=== PATIENT | female | born 1990 | race American Indian/Alaskan Native ===

== ENCOUNTER 2022-03-18 05:54 | Inpatient (IN) | payer OTHER, MEDICAID ==
[2022-03-15 12:36] LABS: Hematocrit 30.5 % (30.3-42.9); Hemoglobin 9.3 gm/dl (10.1-14.3); Mean Corpuscular HGB Conc 31 % (30-34); Mean Corpuscular Volume 74 fl (79-97); Platelet Count 327 K/mm3 (140-440); Red Cell Distribution Width 16.2 % (13.2-15.2)
[2022-03-15 13:51] LABS: Basophils % (Manual) 0 % (0.0-1.8); Eosinophils % (Manual) 0 % (0.0-4.3); Total Cells Counted 100
[2022-03-15 13:52] LABS: Anisocytosis 1+; Hypochromasia 2+; Large Platelets Few; Platelet Estimate Consistent w Auto
[2022-03-18] MEDS ORDERED: LACTATED RINGERS 1,000 ML ONE (09:29)
--- NOTE | 2022-03-18 09:38 | History and Physical Report ---
History of Present Illness Date of examination: 03/15/22 Date of admission: 03/18/22 08:58 Chief complaint: here for c/s History of present illness: All risk/benefits/alternatives were d/w pt and questions were addressed and answered. Cosnsents signed and placed on the chart. EDC Calculations LMP: 03/25/2022 Exam: 03/24/2022 EDC Confirmation: 03/24/2022 Gestational Age: 31 6/7 weeks Past History : 3 Living Children: 1 Elect. Ab: 1 # 1 Delivery date: 11/01/2010 Weeks Gestation: 37 labor: no Delivery type: Anesthesia type: epidural Sex: Male weight: 6-8 Past Medical History: Reviewed and updated today: Negative Past Surgical History: Reviewed and updated today: negative Risk Factors: Smoked Tobacco Use: Never smoker Smokeless Tobacco Use: Never Passive Smoke Exposure: no HIV High Risk Behavior: past IV drug use Exercise: no Seatbelt Use: 100 % PAP Smear History: Date of Last PAP Smear: 09/16/2021 Results: Normal Alcohol Use: no Drug Use: no Past Medical History Anesthesia Complications: negative Anemia: negative Autoimmune Disorder: negative Bleeding Disorder: negative Blood Transfusions: negative Breast Disease: negative Diabetes: negative Heart Disease: negative Hypertension: negative Hepatitis/Liver Disease: negative Kidney Disease/UTI: negative Neurologic/Epilepsy/Migraines: negative Phlebitis/Varicosities: negative Psychiatric: negative Pulmonary Disease/Asthma: negative Thyroid Disease: negative Hospitalizations: negative Surgery (Non-heater helper forge): negative Abnormal PAP: negative Infertility: negative Uterine Anomaly: negative Uterine Surgery (not C/S): negative Infection History Hx of STD: none HIV Risk Eval: past IV drug use Personal hx. of genital herpes: no Partner hx. of genital herpes: no Rash, Viral, or Febrile illness since last LMP? no Genetic History Congenital Heart Defect: Mom: no Will Disease: Mom: no Thalassemia Mom: no Neural Tube Defect Mom: no Down's Syndrome Mom: no Arik-Sachs Mom: no Sickle Cell Disease/Trait Mom: no Hemophilia Mom: no Muscular Dystrophy Mom: no Cystic Fibrosis Mom: no [place] Chorea Mom: no Mental Retardation Mom: no Fragile X Mom: no Other Genetic/Chromosomal Disorder Mom: no Child w/other defect Mom: no Enviromental Exposures Xray Exposure: no Medication, drug, or alcohol use since LMP: no Chemical/Other Exposure: no Exposure to Cat Liter: no Hx of Parvovirus (Fifth Disease): no Active Medications (reviewed today): unspecified unspecified ([id number]) iron unspecified unspecified (ferrous sulfate) Current Allergies: No known allergies Past History Past Medical History: no pertinent history Past Surgical History: section Family/Genetic History: other (see hpi) Social history: other (see hpi) - Obstetrical History Expected Date of Delivery: 03/25/22 Actual Gestation: 39 Week(s) 0 Day(s) : 2 Para: 1 Number of Living Children: 1 Medications and Allergies Allergies Allergy/AdvReac Type Severity Reaction Status Date / Time No Known Allergies Allergy Unverified 03/09/22 21:13 Home Medications Medication Instructions Recorded Confirmed Last Taken Type No Known Home Medications [No 03/09/22 03/09/22 Unknown History Reported Home Medications] Review of Systems All systems: negative - Vital Signs Vital signs: Vital Signs Temp Pulse Resp BP Pulse Ox 98.5 F 75 16 126/74 100 03/15/22 11:55 03/15/22 11:55 03/15/22 11:55 03/15/22 11:55 03/15/22 11:55 Temp Pulse Resp BP Pulse Ox 98.5 F 75 16 126/74 100 03/15/22 11:55 03/15/22 11:55 03/15/22 11:55 03/15/22 11:55 03/15/22 11:55 - Physical Exam Cardiovascular: Normal S1, Normal S2 Lungs: Positive: Clear to auscultation, Normal air movement Abdomen: Positive: normal appearance, soft. Negative: distention, tenderness, guarding Genitourinary (Female): Positive: other (deferred) Deep Tendon Reflex Grade: Normal +2 - Obstetrical FHR: auscultation normal Results Result Diagrams: 03/15/22 12:00 All other labs normal. Assessment and Plan - Patient Problems (1) 39 weeks gestation of Current Visit: Yes Status: Acute (2) Previous delivery affecting Current Visit: Yes Status: Acute Plan to address problem: -admit and prepare for surgery -consents signed and placed on the chart.
[2022-03-18] MEDS ORDERED: OXYTOCIN DRIP 30 UNITS/500 ML BAG IV SCH (10:00)
[2022-03-18] MEDS ORDERED: BICITRA ORAL LIQD 30ML PO SCH (10:00)
[2022-03-18] MEDS ORDERED: ceFAZolin/Water 2 GM/20 ML 2 GM/20 ML SYRINGE IV NR (10:00)
[2022-03-18] MEDS ORDERED: LACTATED RINGERS 1,000 ML IV SCH (10:00)
[2022-03-18] MEDS ORDERED: METOCLOPRAMIDE 10 MG/2 ML INJ IV SCH (10:00)
[2022-03-18] MEDS ORDERED: FAMOTIDINE 20 MG/2 ML INJ IV SCH (10:00)
[2022-03-18] MEDS ORDERED: SODIUM CHLORIDE 0.9% 500 ML 500 ML IV SCH (10:00)
[2022-03-18] MEDS ORDERED: dexAMETHasone 20 MG/5 ML VIAL ONE (10:49)
[2022-03-18] MEDS ORDERED: ONDANSETRON 4 MG/2 ML INJ ONE (10:49)
[2022-03-18] MEDS ORDERED: BUPIVACAINE/PF (0.5%) 5 MG/1 ML 30 ML VIAL INFILTRATI ONE (10:49)
[2022-03-18] MEDS ORDERED: PHENYLEPHRINE/NS 1,000 MCG/10 ML SYRINGE (OR USE) IV ONE (11:03)
[2022-03-18] MEDS ORDERED: ceFAZolin/STERILE WATER 2 GM/20 ML SYRINGE IV ONE (13:40)
[2022-03-18] MEDS ORDERED: LACTATED RINGERS 2,000 ML ONE (13:46)
--- NOTE | 2022-03-18 15:10 | Operative Report ---
Operative Report Operative Report: Date of procedure: 03/18/2022 Pre-operative diagnosis: 39 weeks gestation Previous section x1 Post-operative diagnosis: Same plus dense adhesions of the uterus to the anterior abdominal wall Procedure name(s): Repeat low transverse section via Pfannenstiel skin incision Lysis of adhesions Surgeon: Dr. Taylor Personal Counselor: FERNANDA Anesthesia: Spinal EBL: Q. BL 580 mL Urine output: 100 mL of clear urine out at end of procedure Fluids: 1400 mL Findings: Liveborn male weight 7 pounds 9 ounces Apgars of 8 and 9 at 1 and 5 minutes. Grossly normal fallopian tubes and ovaries bilaterally. Dense adhesions of the uterus to the posterior surface of the anterior rectus muscles. Indications: Patient presents for scheduled repeat section. all risk benefits and alternatives were discussed with the patient. Consents were signed and placed on the chart. Procedure: Patient was taking to the operating room. Patient was then prepped and draped in sterile fashion after anesthesia was found to be adequate. A low transverse skin incision was made with the scalpel through previous incisional scar and carried down to the underlying layer of fascia with the Bovie. The fascia was then incised in the midline and this incision was extended bilaterally with the Bovie. The superior aspect of the fascia was grasped with Angy clamps tented upward and dissected off of the anterior rectus muscles with the scalpel. In similar fashion the inferior aspect of the fascia was grasped with Angy clamps tented upward and dissected off of the anterior rectus muscles. The rectus muscles were then bluntly divided in the midline. The peritoneum was identified and entered into sharply. Adhesions were noted at the anterior surface of the uterus these adhesions were lysed via blunt sharp and blunt dissection. Once the anterior surface of the uterus was completely free of adhesions the Leobardo retractor was placed. The bladder blade was replaced. A lower transverse uterine incision was made with the scalpel and extended bilaterally with the bandage scissors. Artificial rupture of membranes was performed yielding [clear amniotic fluid]. The 's head was then delivered atraumatically. The anterior shoulder and rest of delivered without difficulty. The umbilical cord was clamped x2. The cord was cut. The infant was then placed in sterile bassinet. [The cord blood was collected]. The placenta was manually extracted in its entirety. The uterus was exteriorized and cleared of all clots and debris. The uterine incision was closed using 0 Vicryl in a running locking fashion. [ A second imbricating layer of the same suture was then created.] The posterior cul-de-sac was copiously irrigated. The uterus was returned to the abdomen. The gutters were also irrigated. The anterior rectus muscles were reapproximated using 3-0 Vicryl. The anterior rectus fascia was reapproximated using 0 Vicryl in a running fashion. The subcuticular fat was reapproximated using 2-0 Vicryl in a running fashion. The skin was reapproximated with 4-0 Monocryl in a subcuticular stitch. The patient tolerated the procedure well. Sponge lap and needle counts were all correct x3. Patient was taken to the recovery room awake and in stable condition.
--- NOTE | 2022-03-18 15:33 | Anesthesia Consultation ---
Anesthesia Consult and Med Hx Date of service: 03/18/22 - Airway Anesthetic Teeth Evaluation: Good ROM Head & Neck: Adequate Mallampati Class: Class II Intubation Access Assessment: Probably Good - Pulmonary Exam CTA: Yes - Cardiac Exam Cardiac Exam: RRR - Pre-Operative Health Status ASA Pre-Surgery Classification: ASA2 Proposed Anesthetic Plan: Spinal Nerve Block: Johan Tap - Pulmonary Hx Smoking: No Hx Asthma: No Hx Respiratory Symptoms: No SOB: No COPD: No Home Oxygen Therapy: No Hx Pneumonia: No Hx Sleep Apnea: No - Cardiovascular System Hx Hypertension: No Hx Coronary Artery Disease: No Hx Heart Attack/AMI: No Hx Angina: No Hx Percutaneous Transluminal Coronary Angioplasty (PTCA): No Hx Cardia Arrhythmia: No Hx Pacemaker: No Hx Internal Defibrillator: No Hx Valvular Heart Disease: No Hx Heart Murmur: No Hx Peripheral Vascular Disease: No - Central Nervous System Hx Neuromuscular Disorder: No Hx Seizures: No CVA: No Hx Back Pain: No Hx Psychiatric Problems: No - Gastrointestinal Hx Ulcer: No Hx Gastroesophageal Reflux Disease: No - Endocrine Hx Renal Disease: No Hx End Stage Renal Disease: No Hx Cirrhosis: No Hx Liver Disease: No Hx Insulin Dependent Diabetes: No Hx Non-Insulin Dependent Diabetes: No Hx Thyroid Disease: No Hx Hypothyroidism: No Hx Hyperthyroidism: No - Hematic Hx Anemia: No Hx Sickle Cell Disease: No - Other Systems Hx Alcohol Use: No Hx Substance Use: No Hx Cancer: No Hx Obesity: Yes
--- NOTE | 2022-03-18 15:33 | Anesthesia Day of Surgery ---
Anesthesia Day of Surgery - Day of Surgery Patient Examined: Yes Patient H&P Reviewed: Yes Patient is NPO: Yes Beta Blockers: No Cardiac Clearance: No Pulmonary Clearance: No Raul's Test: N/A
--- NOTE | 2022-03-18 15:34 | Progress Note ---
Spinal Anesthesia Block - Spinal Anesthesia Block Start Time: 13:30 Stop Time: 13:37 Performed by:: NEHA GILL Procedure: The patient was placed in a sitting position on the OR table and monitors applied. A timeout was performed immediately prior to the start of the procedure. The patient was Prepped and draped in a sterile fashion and the skin was localized with 3 mL 1% lidocaine at L[4]-L[5] interspace. An introducer was placed into the back between L4-L5 and a 25g spinal needle was advanced into the intrathecal space until clear, free flowing CSF was observed. 1.8cc of 0.75% hyperbaric bupivacaine + 0.5mcg Precedex was injected into the intrathecal space and the spinal needle was removed. The patient tolerated the procedure well and there were no immediate complications noted.
--- NOTE | 2022-03-18 15:35 | Progress Note ---
Regional Anesthesia Block - Regional Anesthesia Block Start Time: 15:17 Stop Time: 15:22 Performed By:: NEHA GILL Procedure: During the pre-op interview the patient agreed to and signed a consent for a TAP block for post surgical pain management. After her C/S was completed a time out was performed prior to the start of the procedure. The Trans Abdominal Plane was identified bilaterally via ultrasound. The skin was prepped bilaterally with chlorhexidine and a 22g stimuplex needle was advanced to the area between the internal oblique muscle and the trans abdominal plane. Marcaine 0.25% 30mlwas injected under ultrasound guidance on the left and right side. Negative aspiration every 5mL, There was no change in the patients heart rate or rhythm and the patient tolerated the procedure well. No apparent complications were observed.
[2022-03-18] MEDS ORDERED: WITCH HAZEL/ GLYCERIN PAD TP PRN (16:00)
[2022-03-18] MEDS ORDERED: NALOXONE 0.4 MG/1 ML INJ IV PRN ×2 (16:00)
[2022-03-18] MEDS ORDERED: D5W/LACTATED RINGERS 1,000 ML IV SCH (16:00)
[2022-03-18] MEDS ORDERED: fentaNYL-BUPIV 2 MCG/ML-0.125% 200 MCG/100 ML BAG EPIDURAL SCH (16:00)
[2022-03-18] MEDS ORDERED: KETOROLAC 30 MG/1 ML INJ IV PRN (16:00)
[2022-03-18] MEDS ORDERED: PROMETHAZINE 25 MG TAB PO PRN (16:00)
[2022-03-18] MEDS ORDERED: HYDROmorphone 1 MG/1 ML INJ IV PRN ×2 (16:00)
[2022-03-18] MEDS ORDERED: PROMETHAZINE 25 MG RECT SUPP PR PRN (16:00)
[2022-03-18] MEDS ORDERED: MORPHINE 4 MG/1 ML INJ IV PRN ×2 (16:00)
[2022-03-18] MEDS ORDERED: SIMETHICONE 80 MG CHEW TAB PO PRN (16:00)
[2022-03-18] MEDS ORDERED: LANOLIN/ZINC/DIMETHICONE (LANSINOH) 7 GM TP PRN (16:00)
[2022-03-18] MEDS ORDERED: ONDANSETRON 4 MG/2 ML INJ IV PRN (16:00)
[2022-03-18] MEDS ORDERED: MORPHINE 2 MG/1 ML INJ IV PRN (16:00)
--- NOTE | 2022-03-18 17:53 | Event Note ---
Date: 03/18/22 Pt seen and examined. Uterus is firm and below the umbilicus at this time. No active bleeding, trickling or clots expressed from the vagina with uterine message. I d/w need to start meds to prevent atony from re -occurring so will add methergine at this time. Pt expressed understanding. pre op hct was 30 so will closely monitor. Pt has 2 units on hold at this time. Pt inquired and asked for assistance with breast feeding. was placed to maternal breast and infant was able to latch. She was instructed to call RN or tech should she need further assistance once provider has left the room.
[2022-03-18] MEDS ORDERED: METHYLERGONOVINE MALEATE 0.2 MG/ML VIAL IM NR (17:54)
[2022-03-18] MEDS: ceFAZolin/NS 1 GM/50 ML 1 GM/50 ML BAG IV SCH (18:32)
[2022-03-18] MEDS: oxyCODONE /ACETAMINOPHEN 5-325MG TAB PO PRN (18:32)
[2022-03-18] MEDS ORDERED: METHYLERGONOVINE 0.2 MG TABLET PO SCH (22:00)
[2022-03-19] MEDS: METHYLERGONOVINE 0.2 MG TABLET PO SCH ×2 (00:39→09:25)
[2022-03-19] MEDS: ceFAZolin/NS 1 GM/50 ML 1 GM/50 ML BAG IV SCH (01:58)
[2022-03-19 05:07] LABS: Hematocrit 28.2 % (30.3-42.9); Hemoglobin 8.8 gm/dl (10.1-14.3)
[2022-03-19] MEDS: IBUPROFEN 800 MG TAB PO PRN ×2 (05:16→17:49)
--- NOTE | 2022-03-19 08:55 | Progress Note ---
Assessment and Plan - Patient Problems (1) delivery delivered Current Visit: Yes Status: Acute Plan to address problem: Routine postoperative care Regular diet VSS Discussed postoperative goals. Ambulation encouraged Anticipate D/C POD #2 or 3 (2) Acute on chronic blood loss anemia Current Visit: Yes Status: Acute Plan to address problem: H/H dropped f4rom 9.3 to 8.8 Currently asymptomatic Ferrous sulfate 325 mg BID Will continue to monitor Subjective - Subjective Date of service: 03/19/22 Principal diagnosis: s/p RCS Interval history: Patient is POD #1 s/p PCS. Voices no complaints. Has not yet voided following noble removal. Tolerated clear liquid diet overnight. Notes pain controlled. Minimal vaginal bleeding. Patient reports: voiding normally, pain well controlled, ambulating normally : doing well Objective - Vital Signs Latest vital signs: Vital Signs Temp Pulse Resp BP Pulse Ox Pulse Ox 03/19/22 04:20 97.9 F 73 20 120/72 100 03/19/22 01:04 98.1 F 69 20 107/65 100 03/18/22 19:55 97.6 F 66 20 125/73 100 03/18/22 19:40 98 03/18/22 17:07 97.4 F L 63 18 106/66 100 100 03/18/22 16:30 97.3 F L 63 16 105/62 100 03/18/22 16:15 64 14 103/60 100 03/18/22 16:00 62 16 106/63 100 03/18/22 15:45 58 L 17 105/61 100 03/18/22 15:30 60 17 103/59 100 03/18/22 15:25 60 17 97/50 100 03/18/22 15:20 67 20 89/44 100 03/18/22 15:15 96 F L 71 19 99/42 100 03/18/22 11:35 85 98 03/18/22 11:30 79 99 03/18/22 11:25 84 98 03/18/22 11:20 79 99 03/18/22 11:15 85 99 03/18/22 11:10 81 98 03/18/22 11:05 87 98 03/18/22 11:00 86 98 03/18/22 10:55 77 98 03/18/22 10:50 90 98 03/18/22 10:45 84 98 03/18/22 10:40 81 99 03/18/22 10:35 78 98 03/18/22 10:30 91 H 98 03/18/22 10:25 79 99 03/18/22 10:20 84 99 03/18/22 10:15 94 H 98 03/18/22 10:10 84 98 03/18/22 10:07 98.6 F 18 98 03/18/22 10:05 79 98 03/18/22 10:02 79 127/62 03/18/22 10:00 77 99 Intake and Output 03/18/22 03/19/22 03/19/22 23:59 07:59 15:59 Intake Total 150 240 Output Total 250 700 Balance -100 -460 Intake: IV 150 ANCEF/NS 1 GM/50 ML 1 gm 50 In 50 ml @ 100 mls/hr IV Q8H [facility] Rx#:[id number] Oral 240 Output: Urine 250 700 Indwelling Catheter 700 Other: Total, Intake Amount 240 Total, Output Amount 300 # Voids Indwelling Catheter 100 1 - Exam Abdomen: Present: normal appearance, soft Vulva: both: normal Uterus: Present: firm, fundal height below umbilicus Extremities: Present: normal - Labs Labs: Abnormal lab results 03/18/22 03/19/22 Range/Units 09:48 04:02 Hgb 8.8 L (10.1-14.3) gm/dl Hct 28.2 L (30.3-42.9) % Crossmatch See Detail
--- NOTE | 2022-03-19 09:15 | Post Anesthesia Evaluation ---
- Post Anesthesia Evaluation Patient Participated: Yes Airway Patent: Yes Stable Respiratory Function: Yes Nausea/Vomiting: No Temp > 96.8F: Yes Pain Manageable: Yes Adequeate Hydration: Yes Anesthesia Complications: No Block Receding Appropriately: Yes Patient on Ventilator: No
[2022-03-19] MEDS: FERROUS SULFATE 325 MG TAB PO SCH ×2 (09:25→22:00)
[2022-03-19] MEDS: oxyCODONE /ACETAMINOPHEN 5-325MG TAB PO PRN (10:43)
[2022-03-20] MEDS: IBUPROFEN 800 MG TAB PO PRN (00:11)
--- NOTE | 2022-03-20 10:09 | Discharge Summary ---
Providers - Providers Date of Admission: 03/18/22 15:15 Date of discharge: 03/20/22 Attending physician: MONSE REYNOLDS Primary care physician: REHAB ASSISTANT Hospitalization Reason for admission: section Delivery: Procedure: repeat low transverse Incision: normal, dry, intact complications: none Discharge diagnosis: IUP at term delivered [place] baby: male Condition at discharge: Good Disposition: 01 HOME / SELF CARE / HOMELESS - Discharge Diagnoses (1) delivery delivered Status: Acute (2) Acute on chronic blood loss anemia Status: Acute Plan - Discharge Medications Prescriptions: Docusate Sodium [Colace] 100 mg PO BID PRN #60 capsule PRN Reason: Constipation Lidocain2.5%/Prilocai2.5% [Emla] 2 gm TP ONCE #1 tube Ferrous Sulfate [Feosol 325 MG tab] 325 mg PO QDAY #60 tablet Ibuprofen [Motrin 800 MG tab] 800 mg PO Q8HR PRN #30 tablet PRN Reason: Pain, Moderate (4-6) oxyCODONE /ACETAMINOPHEN [Percocet 5/325] 1 tab PO Q4HR #30 tab - Provider Discharge Summary Activity: no sex for 6 weeks, no strenuous exercise Diet: routine Instructions: routine Additional instructions: [] Smoking cessation referral if applicable(refer to patient education folder for contact #) [] Refer to [facility] Booklet Call your doctor immediately for: * Fever > 100.5 * Heavy vaginal bleeding ( >1 pad per hour) * Severe persistent headache * Shortness of breath * Reddened, hot, painful area to leg or breast * Drainage or odor from incision. * Keep incision clean and dry at all times and follow doctor's instructions regarding bathing/showering - Follow up plan Follow up: MONSE REYNOLDS MD [Staff Physician] - 7 Days
[2022-03-20] MEDS: oxyCODONE /ACETAMINOPHEN 5-325MG TAB PO PRN (11:48)
[2022-03-20] MEDS: FERROUS SULFATE 325 MG TAB PO SCH (11:48)
[2022-03-20 13:43] VITALS: BP 117/75
== END 2022-03-20 14:00 | disposition home or self-care (01) | DRG 787 ==
LOC: APU 08:58 → UNDOADMIN 08:58 → APU 15:15 → OB 17:32
PROVIDERS: ADMIT Obstetrics & Gynecology; ATTEND Obstetrics & Gynecology
PROC: 10D00Z1 Extraction of Products of Conception, Low, Open Approach (ICD-10-PCS; principal; 2022-03-18)
PROC: 0DNW0ZZ Release Peritoneum, Open Approach (ICD-10-PCS; 2022-03-18)
PROC: 3E0T3BZ Introduction of Anesthetic Agent into Peripheral Nerves and Plexi, Percutaneous Approach (ICD-10-PCS; 2022-03-18)
DX: O34.211 Maternal care for low transverse scar from previous cesarean delivery (principal); D62 Acute posthemorrhagic anemia; Z3A.39 39 weeks gestation of pregnancy; Z37.0 Single live birth; O99.892 Other specified diseases and conditions complicating childbirth; N73.6 Female pelvic peritoneal adhesions (postinfective); O90.81 Anemia of the puerperium; O99.214 Obesity complicating childbirth
CPT/HCPCS: 36415; 85007; 85014; 85018; 85025; 86592; 86850; 86900; 86901; 86920; 88307; G0378; J3490; J7060; J7121; J0690; J1100; J1885; J2210; J2370; J2405; J2765; J7120; U0003